=== PATIENT | female | born 1965 | race African-American/Black ===

== ENCOUNTER 2017-01-30 11:34 | Inpatient (IN) | payer OTHER ==
[~2017-01-30] VITALS: Ht 162.6 cm; Wt 52.2 kg
[~2017-01-30 11:34] MED LIST: KEPPRA500 M4 ORAL; KEPPRA500 MG ORAL; LEVETIRACETAM500 MG ORAL; NKM
[2017-01-30 11:39] VITALS: BP 128/74
[2017-01-30 12:38] LABS: MEAN CORPUSCULAR HEMOGLOBIN 19.3 PG (27.0-31.0); MEAN CORPUSCULAR HGB CONC 28.3 G/DL (32.0-36.0); MEAN CORPUSCULAR VOLUME 68 FL (80-99); MEAN PLATELET VOLUME 6.5 FL (6.5-10.1); PLATELET COUNT 194 K/UL (150-450); RED BLOOD COUNT 3.17 M/UL (4.20-5.40); RED CELL DISTRIBUTION WIDTH 17.9 % (11.6-14.8); WHITE BLOOD COUNT 5.7 K/UL (4.8-10.8)
[2017-01-30 12:51] LABS: TROPONIN I < 0.30 ng/mL (<=0.30)
--- NOTE | 2017-01-30 12:52 | Emergency Room Report ---
History of Present Illness General Chief Complaint: Headache Source: Patient (KHADIJAH SINCLAIR D.O.) Present Illness HPI Patient presents with complaints of headache lightheadedness And severe dizziness Patient reports history of seizures and is on Keppra denies any chest pain or shortness of breath She does feel generally weak Denies any blood in the stool denies any vomiting Denies any fevers or chills denies any trauma Patient symptoms are worsened with standing and ambulation (KHADIJAH SINCLAIR D.O.) Allergies: Coded Allergies: NO KNOWN ALLERGIES (Unverified Allergy, Unknown, 06/14/15) Patient History Past Medical History: see triage record Pertinent Family History: none Reviewed Nursing Documentation: PMH: Agreed, PSxH: Agreed (KHADIJAH SINCLAIR D.O.) Nursing Documentation-PMH Hx Cardiac Problems: No Hx Hypertension: Yes Hx Cancer: No Hx Gastrointestinal Problems: No Hx Neurological Problems: Yes Hx Cerebrovascular Accident: No Hx Transient Ischemic Attacks: No Hx Dementia: No Hx Alzheimer's Disease: No Hx Parkinson's Disease: No Hx Meningitis: No Hx Encephalitis: No Hx Seizures: Yes Hx Epilepsy: No Hx Multiple Sclerosis: No Hx Cerebral Palsy: No Hx Amyotrophic Lat Sclerosis: No Hx Guillian-[place] Syndrome: No Hx Paralysis: No Hx Peripheral Neuropathy: No Hx Spinal Cord Injury: No Hx Head Trauma: No Hx Memory Loss: No Hx Concentration Difficulty: No Hx Speech Problem: No Hx Tremors: No Hx Vertigo: No Hx Dizziness: Yes Hx Syncope: No Hx Headaches: Yes Hx Aphasia: No Hx Dysphasia: No Hx Numbness: No Hx Weakness: No Hx Fatigue: No Hx Neurologic Surgery: No Hx Brain Shunt: No (KHADIJAH SINCLAIR D.O.) Review of Systems All Other Systems: negative except mentioned in HPI (KHADIJAH SINCLAIR D.O.) Physical Exam Vital Signs Date Time Temp Pulse Resp B/P Pulse Ox O2 Delivery O2 Flow Rate FiO2 01/30/17 11:19 98.4 72 18 125/78 100 01/30/17 11:39 Room Air Sp02 EP Interpretation: reviewed, normal General Appearance: no apparent distress - However appears frail Head: normocephalic, atraumatic Eyes: bilateral eye EOMI, bilateral eye PERRL, bilateral eye other - Pale conjunctiva ENT: hearing grossly normal, normal pharynx, TMs + canals normal, uvula midline Neck: full range of motion, supple, no meningismus, no bony tend Respiratory: lungs clear, normal breath sounds, no rhonchi, no respiratory distress, no retraction, no accessory muscle use Cardiovascular #1: normal peripheral pulses, regular rate, rhythm, no edema, no gallop, no JVD, no murmur Gastrointestinal: normal bowel sounds, non tender, soft, no mass, no organomegaly, non-distended, no guarding, no hernia, no pulsatile mass, no rebound Genitourinary: no CVA tenderness Musculoskeletal: normal inspection Neurologic: oriented x3, responsive, food checkers and cashiers supervisor III-XII nml as tested, motor strength/ tone normal, sensory intact Psychiatric: mood/affect normal Skin: normal color, no rash, warm/dry, palpation normal Lymphatic: normal inspection, no adenopathy (KHADIJAH SINCLAIR D.O.) Medical Decision Making Diagnostic Impression: Primary Impression: Symptomatic anemia ER Course Patient is a fairly complex patient with multiple differential to consideration including but not limited to cardiac cardiopulmonary and vascular emergencies Patient's blood work reveals significant anemia she has had previous blood transfusions at this time blood work was initiated and the patient requiring admission Labs Test 01/30/17 12:22 White Blood Count 5.7 K/UL (4.8-10.8) Red Blood Count 3.17 M/UL (4.20-5.40) Hemoglobin 6.1 G/DL (12.0-16.0) Hematocrit 21.5 % (37.0-47.0) Mean Corpuscular Volume 68 FL (80-99) Mean Corpuscular Hemoglobin 19.3 PG (27.0-31.0) Mean Corpuscular Hemoglobin Concent 28.3 G/DL (32.0-36.0) Red Cell Distribution Width 17.9 % (11.6-14.8) Platelet Count 194 K/UL (150-450) Mean Platelet Volume 6.5 FL (6.5-10.1) Neutrophils (%) (Auto) % (45.0-75.0) Lymphocytes (%) (Auto) % (20.0-45.0) Monocytes (%) (Auto) % (1.0-10.0) Eosinophils (%) (Auto) % (0.0-3.0) Basophils (%) (Auto) % (0.0-2.0) Differential Total Cells Counted 100 Neutrophils % (Manual) 46 % (45-75) Lymphocytes % (Manual) 43 % (20-45) Monocytes % (Manual) 10 % (1-10) Eosinophils % (Manual) 0 % (0-3) Basophils % (Manual) 1 % (0-2) Band Neutrophils 0 % (0-8) Platelet Estimate Adequate Platelet Morphology Normal Hypochromasia 4+ Anisocytosis 2+ Microcytosis 3+ Sodium Level 139 mEQ/L (135-145) Potassium Level 3.6 mEQ/L (3.4-4.9) Chloride Level 99 mEQ/L (98-107) Carbon Dioxide Level 26 mEQ/L (20-30) Anion Gap 14 (5-15) Blood Urea Nitrogen 10 mg/dL (7-23) Creatinine 0.9 mg/dL (0.5-0.9) Estimat Glomerular Filtration Rate > 60 mL/min (>60) Glucose Level 94 mg/dL (74-106) Calcium Level 9.1 mg/dL (8.6-10.2) Total Bilirubin 0.2 mg/dL (0.0-1.2) Aspartate Amino Transf (AST/SGOT) 13 U/L (5-40) Alanine Aminotransferase (ALT/SGPT) 6 U/L (3-33) Alkaline Phosphatase 85 U/L (35-104) Total Creatine Kinase 37 U/L (26-140) Creatine Kinase MB < 1.5 ng/mL (< 3.8) Creatine Kinase MB Relative Index 4.0 Troponin I < 0.30 ng/mL (<=0.30) Total Protein 7.1 g/dL (6.6-8.7) Albumin 3.9 g/dL (3.5-5.2) Globulin 3.2 g/dL Albumin/Globulin Ratio 1.2 (1.0-2.7) Lipase 26 U/L (< 60) (KHADIJAH SINCLAIR D.O.) ER Course Patient was previously endorsed by Dr Sinclair for admission for symptomatic anemia and blood transfusion I was alerted by RN Jose and charge entry clerk that patient refusing to be admitted now because "I dont like the tuna and I want to go home and eat real food." I spent over 20minutes on 3 separate occasions trying to convince patient of importance for her to stay in hospital. Initially she said she would "rip out her IV and leave" and didnt want to even finish the first unit of blood transfusion but after long discussion, agreed to stay in ED for that. Patient refused to sign AMA paperwork but essentially is leaving against medical advice Patient is clinically sober, is free from from distracting injury, and has intact judgement and capacity to decide to leave against medical advice. Patient came in with symptomatic anemia, see Dr Sinclair's note for complete HPI , PE, and assessment/plan. Patient was admitted to Dr Blackburn. Patient was also already seen by GI specialist in ED as well. Patient verbalized understanding of my concern for symptomatic anemia and recommendation by the ER physician and admitting physician for her admission for additional blood transfusion and repeat CBC, and further evaluation and management as an inpatient. I explained to patient the risks of leaving AMA and patient informed that if they she leaves, she could get worse, she could become become critically ill from continued bleeding, possibly become disabled or . Patient verbalized back to me understanding of these risks but still wants to leave. Patient states "God is watching over me". She states she has followup appointment February 03 (in 4 days) and will "get the blood then." Patient tossed the mattress on stretcher before leaving ER. (RYANN GUIDRY M.D.) Rhythm Strip Diag. Results EP Interpretation: yes Rate: 66 Rhythm: NSR, no PVC's, no ectopy (KHADIJAH SINCLAIR D.O.) Last Vital Signs Date Time Temp Pulse Resp B/P Pulse Ox O2 Delivery O2 Flow Rate FiO2 01/30/17 11:39 98.3 76 17 128/74 100 Room Air Status: improved (KHADIJAH SINCLAIR D.O.) Status: improved (RYANN GUIDRY M.D.) Disposition: AGAINST MEDICAL ADVICE Condition: Serious Referrals: NOT CHOSEN IPA/,REFERRING (PCP) KHADIJAH SINCLAIR D.O. January 30, 2017 12:52 RYANN GUIDRY M.D. January 30, 2017 16:33
[2017-01-30 12:56] LABS: ALANINE AMINOTRANSFERASE 6 U/L (3-33); ALBUMIN/GLOBULIN RATIO 1.2 (1.0-2.7); ANION GAP 14 (5-15); ASPARTATE AMINO TRANSFERASE 13 U/L (5-40); CALCIUM 9.1 mg/dL (8.6-10.2); CARBON DIOXIDE 26 mEQ/L (20-30); CHLORIDE 99 mEQ/L (98-107); CREATININE 0.9 mg/dL (0.5-0.9); GLOMERULAR FILTRATION RATE > 60 mL/min (>60); HEMOLYSIS 0; LIPASE 26 U/L (< 60); POTASSIUM 3.6 mEQ/L (3.4-4.9); SODIUM 139 mEQ/L (135-145); TOTAL PROTEIN 7.1 g/dL (6.6-8.7)
[2017-01-30 13:06] LABS: CKMB < 1.5 ng/mL (< 3.8)
[2017-01-30 13:19] VITALS: BP 107/71
[2017-01-30 13:36] LABS: ANISOCYTOSIS 2+; BAND NEUTROPHILS % (MANUAL) 0 % (0-8); BASOPHILS % (MANUAL) 1 % (0-2); EOSINOPHILS % (MANUAL) 0 % (0-3); HYPOCHROMASIA 4+; LYMPHOCYTES % (MANUAL) 43 % (20-45); MICROCYTES 3+; NEUTROPHILS % (MANUAL) 46 % (45-75); PLATELET ESTIMATE ADEQUATE; PLATELET MORPHOLOGY NORMAL; TOTAL CELLS COUNTED 100
[2017-01-30] MEDS ORDERED: Morphine Sulfate 2mg/ml Inj IVP PRN (15:00)
[2017-01-30] MEDS ORDERED: Zolpidem 5mg tab ORAL PRN (15:00)
--- NOTE | 2017-01-30 15:12 | History and Physical ---
History of Present Illness General Reason for Hospitalization: Headache, weakness. Present Illness HPI The patient is a 51 yr old female with a PMHx significant for seizure disorder and anemia, who presented to the ED with complaints of headache, lightheadedness , severe dizziness and generalized weakness. Denies any chest pain or shortness of breath, denies N/V, blood in stool or vaginal bleeding. No fever or chills. Denies LOC. Patient symptoms are worsened with standing and ambulation. Allergies: Coded Allergies: NO KNOWN ALLERGIES (Unverified Allergy, Unknown, 06/14/15) Medication History Scheduled Levetiracetam (Keppra), 500 MG ORAL EVERY 12 HOURS Levetiracetam (Keppra), Unknown Dose ORAL EVERY 12 HOURS, (Reported) Levetiracetam (Keppra), 500 MG ORAL EVERY 12 HOURS, (Reported) Levetiracetam* (Levetiracetam*), 500 MG ORAL TWICE A DAY No Known Medications* (NKM - No Known Medications*), 0 ., (Reported) Patient History History Provided By: Patient Healthcare decision maker Resuscitation status Advanced Directive on File Past Medical/Surgical History Past Medical/Surgical History: (1) Seizure disorder (2) Anemia (3) Depression Social History Social History: (1) Non-smoker (2) No illicit drug use (3) No history of alcohol use Review of Systems All Other Systems: negative except mentioned in HPI Physical Exam General Appearance: no apparent distress, alert Lines, tubes and drains: peripheral HEENT: normocephalic, atraumatic Neck: non-tender, normal alignment, supple, normal inspection Respiratory/Chest: lungs clear, normal breath sounds, no respiratory distress Breasts: no masses Cardiovascular/Chest: normal peripheral pulses, normal rate, regular rhythm Abdomen: non tender, soft, no organomegaly Extremities: non-tender, normal inspection, no calf tenderness Skin Exam: warm/dry Neurologic: alert, oriented x 3, responsive, normal mood/affect Last 24 Hour Vital Signs Date Time Temp Pulse Resp B/P Pulse Ox O2 Delivery O2 Flow Rate FiO2 01/30/17 13:19 98.2 73 16 107/71 100 Room Air 01/30/17 11:39 98.3 76 17 128/74 100 Room Air 01/30/17 11:19 98.4 72 18 125/78 100 Laboratory Tests Test 01/30/17 12:22 White Blood Count 5.7 K/UL (4.8-10.8) Red Blood Count 3.17 M/UL (4.20-5.40) L Hemoglobin 6.1 G/DL (12.0-16.0) *L Hematocrit 21.5 % (37.0-47.0) L Mean Corpuscular Volume 68 FL (80-99) L Mean Corpuscular Hemoglobin 19.3 PG (27.0-31.0) L Mean Corpuscular Hemoglobin Concent 28.3 G/DL (32.0-36.0) L Red Cell Distribution Width 17.9 % (11.6-14.8) H Platelet Count 194 K/UL (150-450) Mean Platelet Volume 6.5 FL (6.5-10.1) Neutrophils (%) (Auto) % (45.0-75.0) Lymphocytes (%) (Auto) % (20.0-45.0) Monocytes (%) (Auto) % (1.0-10.0) Eosinophils (%) (Auto) % (0.0-3.0) Basophils (%) (Auto) % (0.0-2.0) Differential Total Cells Counted 100 Neutrophils % (Manual) 46 % (45-75) Lymphocytes % (Manual) 43 % (20-45) Monocytes % (Manual) 10 % (1-10) Eosinophils % (Manual) 0 % (0-3) Basophils % (Manual) 1 % (0-2) Band Neutrophils 0 % (0-8) Platelet Estimate Adequate Platelet Morphology Normal Hypochromasia 4+ Anisocytosis 2+ Microcytosis 3+ Sodium Level 139 mEQ/L (135-145) Potassium Level 3.6 mEQ/L (3.4-4.9) Chloride Level 99 mEQ/L (98-107) Carbon Dioxide Level 26 mEQ/L (20-30) Anion Gap 14 (5-15) Blood Urea Nitrogen 10 mg/dL (7-23) Creatinine 0.9 mg/dL (0.5-0.9) Estimat Glomerular Filtration Rate > 60 mL/min (>60) Glucose Level 94 mg/dL (74-106) Calcium Level 9.1 mg/dL (8.6-10.2) Total Bilirubin 0.2 mg/dL (0.0-1.2) Aspartate Amino Transf (AST/SGOT) 13 U/L (5-40) Alanine Aminotransferase (ALT/SGPT) 6 U/L (3-33) Alkaline Phosphatase 85 U/L (35-104) Total Creatine Kinase 37 U/L (26-140) Creatine Kinase MB < 1.5 ng/mL (< 3.8) Creatine Kinase MB Relative Index 4.0 Troponin I < 0.30 ng/mL (<=0.30) Total Protein 7.1 g/dL (6.6-8.7) Albumin 3.9 g/dL (3.5-5.2) Globulin 3.2 g/dL Albumin/Globulin Ratio 1.2 (1.0-2.7) Lipase 26 U/L (< 60) Height (Feet): 5 Height (Inches): 4.00 Weight (Pounds): 115 Assessment/Plan Problem List: (1) Seizure disorder ICD Codes: G40.909 - Epilepsy, unspecified, not intractable, without status epilepticus SNOMED: 709551570 (2) Symptomatic anemia ICD Codes: D64.9 - Anemia, unspecified SNOMED: 420167994 Assessment/Plan Transfuse 2 units PRBC, obtain post transfusion H&H Obtain GI consult Continue esther Shay labs STEPHANIE MEDRANO January 30, 2017 15:12
[2017-01-30] MEDS ORDERED: D5 1/2NS 1,000 ML IV SCH (15:30)
[2017-01-30 15:53] LABS: HEMOLYSIS 1; IRON 15 ug/dL (37-145); TOTAL IRON BINDING CAPACITY 420 ug/dL (250-400)
[2017-01-30 16:41] VITALS: BP 138/77
[2017-01-30 16:42] VITALS: BP 138/77
[2017-01-30] MEDS ORDERED: Docusate 100mg cap ORAL SCH (21:00)
[2017-01-30] MEDS ORDERED: Heparin 5000 units/ml inj SUBQ SCH (21:00)
--- NOTE | 2017-01-31 06:01 | Consultation ---
DATE OF CONSULTATION: 01/30/2017 NOTE: POOR AUDIO QUALITY GASTROLOGY CONSULTATION: CHIEF COMPLAINT: I was asked to see this patient for gastrointestinal bleeding. HISTORY OF PRESENT ILLNESS: The patient is a 51-year-old, woman in the emergency room earlier today. At the time of my dictation, however, it appears that the patient left the emergency room against medical advice and therefore, the said dictation has been done to document the visit, but no further care afterwards will be given. The patient came to the hospital due to reported seizures, although she was somewhat unclear. . She had some dizziness and lightheadedness as well. The patient denies any vomiting or hematochezia. She has months. She has never had endoscopy or colonoscopy. She does have some degree of chronic constipation, but . The patient has severe long-term basis. Evaluation in the emergency room shows severe anemia and admitted the patient to hospital emergency room earlier today. PAST MEDICAL HISTORY: disorder, anemia, depression. MEDICATIONS: See chart list for details. SOCIAL HISTORY: The patient does not smoke or drink alcohol or use drugs. FAMILY HISTORY: Noncontributory. REVIEW OF SYSTEMS: Negative. PHYSICAL EXAMINATION: GENERAL: This is a the pleasant woman, seen in the emergency room. HEENT: Normocephalic and atraumatic. Sclerae anicteric. Oropharynx clear. NECK: Supple. CHEST: Clear to auscultation. CARDIOVASCULAR: Regular rate. ABDOMEN: Soft. Good bowel sounds. There is no tenderness. EXTREMITIES: Revealed no edema. RECTAL: The patient refused rectal exam. NEUROLOGIC: Nonfocal. LABORATORY DATA: Noted. ASSESSMENT: This patient anemia. Therefore, she will be admitted to the hospital for blood transfusion and endoscopy and colonoscopy. her symptoms of upper gastrointestinal source of blood loss. The patient has a large hiatal hernia with ulcers. At the time of this dictation, however, it appears that the patient has left against the medical advice. The patient should follow up with her primary physician as an outpatient for further evaluation and care. Carlos Dyson M.D. DR: Annel JOB#: [id number] CC:
--- NOTE | 2017-02-02 07:57 | Cardiology Report ---
APPROVED REPORT EKG Measurement Heart [id number] Normal sinus rhythm Normal ECG
--- NOTE | 2017-02-02 08:35 | Discharge Summary ---
Discharge Summary Hospital Course Date of Admission January 30, 2017 at 13:37 Date of Discharge January 30, 2017 at 18:01 Admitting Diagnosis Symptomatic Anemia YAYA Avelar is a 51 year old female who was admitted on January 30, 2017 at 13:37 for Symptomatic Anemia Hospital Course dc summary #[id number] Discharge Discharge Disposition Patient signed AMA Discharge Diagnoses: Discharge Instructions Discharge Instructions Special Instructions I have been assigned to complete a D/C Summary on this account. I was not involved in the patient management Maura Aguayo NP (Vanchtein) February 02, 2017 08:35
--- NOTE | 2017-02-02 22:45 | Discharge Summary 2 SIG ---
DATE OF ADMISSION: 01/30/2017 DATE OF DISCHARGE: 01/30/2017 Date of signing against medical advice 01/30/2017 REASON FOR ADMISSION: The patient is a 51-year-old female presented to emergency room with complaint of headache, lightheadedness, generalized weakness, and dizziness. The patient reported history of seizure, taking Keppra. No recent seizure activity. The patient denied any chest pain, shortness of breath, or palpitation. The patient denied any blood in the stool. She denied vomiting. The patient denied fever or chills. The patient denied any trauma. The patient reported that symptoms are worsened with standing and ambulation. Workup in the emergency room revealed hemoglobin of 6.1, hematocrit 21.5. Laboratory work otherwise was unremarkable. The patient admitted for anemia workup, transfusion, and further gastrointestinal workup. ADMITTING DIAGNOSIS: 1. Symptomatic anemia. 2. Possible upper gastrointestinal bleeding. 3. Seizure disorder. HOSPITAL COURSE: The patient was started on transfusion of one unit PRBC in the emergency room, two units in total were ordered. Seizure precautions were maintained. The patient started on Keppra, supplemental oxygen, pulmonary toilet provided as needed. Pulse oximetry was stable on the room air. GI seen and evaluated the patient and recommended esophagogastroduodenoscopy and colonoscopy as well as lab for anemia workup. The patient decided to sign against medical advice since she did not like the food in the hospital. She refused to sign against medical advice form. Emergency room doctor was notified by nurses that the patient decided to leave against medical advice. The patient finished first units of packed red blood cells, declined a second unit of blood transfusion. She had a appointment on 02/03/2017 with the primary medical doctor which she will follow. Prior to leaving, all the risks and consequences for leaving against medical advice were explained to the patient. Nevertheless the patient verbalized understanding of this risk and still expressed desire to leave. The patient was in no distress. Vital signs were stable. The patient left against medical advice without signing against medical advice form. FINAL DIAGNOSES: Include: 1. Symptomatic anemia status post one unit PRBC transfusion. 2. Seizure disorder. 3. Likely upper gastrointestinal bleeding. Braydon Lozoya M.D. I have been assigned to dictate discharge summary on this account and I was not involved in the patient's management. Maura anglindedrick NJacquelinePJacqueline DR: Melvin JOB#: [id number] CC:
== END 2017-01-30 18:01 | disposition left against medical advice (07) | DRG 663 ==
LOC: EDBD 11:34 → EMR 12:03 → 4E 13:37 → EDBEDREQ 14:18
PROC: 30233N1 Transfusion of Nonautologous Red Blood Cells into Peripheral Vein, Percutaneous Approach (ICD-10-PCS; principal; 2017-01-30)
DX: D64.9 Anemia, unspecified (principal); G40.909 Epilepsy, unspecified, not intractable, without status epilepticus; K44.9 Diaphragmatic hernia without obstruction or gangrene
CPT/HCPCS: 36415; 80053; 82550; 82553; 83540; 83550; 83690; 84484; 85007; 85025; 86850; 86900; 86901; 86920; 93005; 96360

== ENCOUNTER 2018-06-29 15:43 | Emergency (ER) | payer OTHER ==
[~2018-06-29] VITALS: Ht 154.9 cm; Wt 45.4 kg
[2018-06-29 15:54] VITALS: BP 141/98
[2018-06-29 16:45] LABS: BASOPHILS % (AUTO) 1.3 % (0.0-2.0); EOSINOPHILS % (AUTO) 0.1 % (0.0-3.0); HEMATOCRIT 34.8 % (37.0-47.0); HEMOGLOBIN 11.2 G/DL (12.0-16.0); LYMPHOCYTES % (AUTO) 34.1 % (20.0-45.0); MEAN CORPUSCULAR VOLUME 84 FL (80-99); MONOCYTES % (AUTO) 7.1 % (1.0-10.0); NEUTROPHILS % (AUTO) 57.3 % (45.0-75.0); PLATELET COUNT 309 K/UL (150-450); RED BLOOD COUNT 4.14 M/UL (4.20-5.40); RED CELL DISTRIBUTION WIDTH 16.5 % (11.6-14.8)
[2018-06-29 17:00] LABS: ANION GAP 9 mmol/L (5-15); BLOOD UREA NITROGEN 11 mg/dL (7-18); CALCIUM 9.3 MG/DL (8.5-10.1); CARBON DIOXIDE 29 MMOL/L (21-32); CHLORIDE 102 MMOL/L (98-107); POTASSIUM 3.4 MMOL/L (3.5-5.1); SODIUM 140 MMOL/L (136-145)
[2018-06-29 17:12] LABS: ALANINE AMINOTRANSFERASE 11 U/L (12-78); ALBUMIN 3.7 G/DL (3.4-5.0); ALBUMIN/GLOBULIN RATIO 0.9 (1.0-2.7); ALKALINE PHOSPHATASE 121 U/L (46-116); ASPARTATE AMINO TRANSFERASE 18 U/L (15-37); BILIRUBIN,TOTAL 0.5 MG/DL (0.2-1.0)
--- NOTE | 2018-06-29 17:46 | Emergency Room Report ---
History of Present Illness General Chief Complaint: Dizziness Source: EMS Present Illness HPI This patient has multiple vague, mild complaints. Most prominent seems to be mild lightheadedness today and mild frontal headache. No trauma, no fever, no shortness of breath, no travel history, no leg swelling, no chest pain, no diaphoresis, no exertional complaints, no nausea, no vomiting, no diarrhea, no abdominal pain. Tolerating po fine, normal urinary output, normal bm. No syncope , LOC, dizziness. Allergies: Coded Allergies: NO KNOWN ALLERGIES (Unverified Allergy, Unknown, 06/14/15) Nursing Documentation-[facility] Past Medical History: No History, Except For Hx Cardiac Problems: No Hx Hypertension: Yes Hx Cancer: No Hx Gastrointestinal Problems: No Hx Neurological Problems: Yes Hx Cerebrovascular Accident: No Hx Transient Ischemic Attacks: No Hx Dementia: No Hx Alzheimer's Disease: No Hx Parkinson's Disease: No Hx Meningitis: No Hx Encephalitis: No Hx Seizures: Yes Hx Epilepsy: No Hx Multiple Sclerosis: No Hx Cerebral Palsy: No Hx Amyotrophic Lat Sclerosis: No Hx Guillian-[place] Syndrome: No Hx Paralysis: No Hx Peripheral Neuropathy: No Hx Spinal Cord Injury: No Hx Head Trauma: No Hx Memory Loss: No Hx Concentration Difficulty: No Hx Speech Problem: No Hx Tremors: No Hx Vertigo: No Hx Dizziness: Yes Hx Syncope: No Hx Headaches: Yes Hx Aphasia: No Hx Dysphasia: No Hx Numbness: No Hx Weakness: No Hx Fatigue: No Hx Neurologic Surgery: No Hx Brain Shunt: No Review of Systems Constitutional: Reports: no symptoms, see HPI, malaise Eye: Reports: no symptoms ENT: Reports: no symptoms Respiratory: Reports: no symptoms Cardiovascular: Reports: no symptoms Gastrointestinal: Reports: no symptoms Genitourinary: Reports: no symptoms Musculoskeletal: Reports: no symptoms Skin: Reports: no symptoms Psychiatric: Reports: no symptoms Neurological: Reports: see HPI, headache Endocrine: Reports: no symptoms Hematologic/Lymphatic: Reports: no symptoms Allergic: Reports: no symptoms All Other Systems: negative except mentioned in HPI Physical Exam Vital Signs Date Time Temp Pulse Resp B/P (MAP) Pulse Ox O2 Delivery O2 Flow Rate FiO2 06/29/18 15:39 95 20 140/107 100 Room Air 06/29/18 15:54 98.6 Sp02 EP Interpretation: reviewed, normal General Appearance: normal inspection, well appearing, no apparent distress, alert, GCS 15, non-toxic Head: normocephalic, atraumatic Eyes: bilateral eye normal inspection, bilateral eye PERRL, bilateral eye EOMI ENT: normal ENT inspection, hearing grossly normal, normal pharynx, no angioedema, normal voice, moist mucus membranes Neck: normal inspection, full range of motion, supple, no meningismus, no bony tend Respiratory: normal inspection, lungs clear, normal breath sounds, no rhonchi, no respiratory distress, no retraction, no accessory muscle use, no wheezing Cardiovascular #1: normal inspection, regular rate, rhythm, no edema Gastrointestinal: normal inspection, normal bowel sounds, non tender, soft, no mass, non-distended Musculoskeletal: gait/station normal, normal range of motion Neurologic: normal inspection, alert, oriented x3, responsive, motor strength/ tone normal Psychiatric: normal inspection, judgement/insight normal, memory normal Suicide Risk Assessment: Suicidal Ideation: No Had intent to initiate attempt: No Pt's plan for suicide attempt: No Has means to complete attempt: No Skin: normal inspection, normal color, no rash, warm/dry Medical Decision Making Diagnostic Impression: Primary Impression: Episode of generalized weakness ER Course There is nothing abnormal on exam, EKG, labs. Ambulatory without difficulty. No further intervention indicated. OK for d/c. EKG Diagnostic Results EKG Time: 14:25 Rate: normal Rhythm: NSR ST Segments: no acute changes ASA given to the pt in ED: No Rhythm Strip Diag. Results Rhythm Strip Time: 18:16 EP Interpretation: yes Rate: 71 Rhythm: NSR Chest X-Ray Diagnostic Results Chest X-Ray Diagnostic Results : Chest X-Ray Ordered: Yes # of Views/Limited/Complete: 1 View Indication: Chest Pain EP Interpretation: Yes Interpretation: no consolidation, no effusion, no pneumothorax, no acute cardiopulmonary disease Impression: No acute disease Last Vital Signs Date Time Temp Pulse Resp B/P (MAP) Pulse Ox O2 Delivery O2 Flow Rate FiO2 06/29/18 15:54 98.6 84 20 141/98 100 Room Air Status: improved Disposition: HOME, SELF-CARE Referrals: DONALDO GARCIA,REFERRING (PCP) Patient Instructions: Flaco Tenorio M.D. Jun 29, 2018 17:46
[2018-06-29 18:14] VITALS: BP 132/79
[2018-06-29 18:15] VITALS: BP 132/79
--- NOTE | 2018-06-30 11:29 | Diagnostic Imaging Report ---
Indication: Chest pain Comparison: 04/28/2016 A single view chest radiograph was obtained. Findings: The heart is enlarged. The lungs are clear. Pulmonary vascularity is appropriate. The diaphragmatic contour is smooth and costophrenic angles are sharp. No pleural effusions are identified. The bones are unremarkable. Impression: No acute findings
--- NOTE | 2018-07-01 16:15 | Cardiology Report ---
APPROVED REPORT EKG Measurement Heart [id number] Normal sinus rhythm Normal ECG
== END 2018-06-29 18:15 | disposition home or self-care (01) ==
LOC: EDBD 15:43 → EMR 16:35
DX: R53.1 Weakness (principal); R42 Dizziness and giddiness; R51 Headache; I10 Essential (primary) hypertension
CPT/HCPCS: 36415; 71045; 80053; 83880; 84484; 85025; 93005; 96360; 99284

== ENCOUNTER 2019-07-19 09:23 | Emergency (ER) | payer OTHER ==
[~2019-07-19] VITALS: Ht 162.6 cm; Wt 54.4 kg
[2019-07-19 09:32] VITALS: BP 160/110
--- NOTE | 2019-07-19 09:33 | NUR ---
ED Nurse Note: pr came in via RA from home c/o gl fall while getting out of bed does not recall how or what happened. pt is in a c-collar and dressing to head per ems. Pt c/o rt forehead laceration neck pain left rib pain rt hip bruising. awaiting ermd eval and nsg orders.
--- NOTE | 2019-07-19 09:56 | Emergency Room Report ---
History of Present Illness General Chief Complaint: Syncope Source: EMS Present Illness HPI Disclaimer: Please note that this report is being documented using DRAGON technology. This can lead to erroneous entry secondary to incorrect interpretation by the dictating instrument. HPI: Female presents for evaluation of head laceration and a syncopal episode. She has a history of seizure and takes Keppra otherwise no reported medical history. She awoke in her usual state of health and took her 500 mg of Keppra this morning as she usually does. She then has no recollection of the following events but then woke up on the ground with a laceration over the right forehead that was bleeding. She applied pressure and achieved hemostasis. EMS was called. She was complaining of right-sided pain over the hip, ribs, shoulder as well as a generalized headache and neck pain. Placed in a cervical collar by EMS prior to arrival. Denies numbness or tingling. Denies weakness, recent illness, chest pain, shortness of breath, vomiting, diarrhea. Cannot recall any preceding symptoms prior to syncopal episode. Unsure whether or not she had a seizure but denies any tongue biting or urinary incontinence. Last seizure was over a year ago. Has been compliant with Keppra. Denies drug or alcohol use. PMH: Seizure disorder PSH: Reviewed in chart Allergies: None reported Social Hx: Denies Allergies: Coded Allergies: NO KNOWN ALLERGIES (Unverified Allergy, Unknown, 06/14/15) Patient History Now: No Nursing Documentation-PMH Hx Cardiac Problems: No Hx Hypertension: Yes Hx Cancer: No Hx Gastrointestinal Problems: No Hx Neurological Problems: Yes Hx Cerebrovascular Accident: No Hx Transient Ischemic Attacks: No Hx Dementia: No Hx Alzheimer's Disease: No Hx Parkinson's Disease: No Hx Meningitis: No Hx Encephalitis: No Hx Seizures: Yes Hx Epilepsy: No Hx Multiple Sclerosis: No Hx Cerebral Palsy: No Hx Amyotrophic Lat Sclerosis: No Hx Guillian-[place] Syndrome: No Hx Paralysis: No Hx Peripheral Neuropathy: No Hx Spinal Cord Injury: No Hx Head Trauma: No Hx Memory Loss: No Hx Concentration Difficulty: No Hx Speech Problem: No Hx Tremors: No Hx Vertigo: No Hx Dizziness: Yes Hx Syncope: No Hx Headaches: Yes Hx Aphasia: No Hx Dysphasia: No Hx Numbness: No Hx Weakness: No Hx Fatigue: No Hx Neurologic Surgery: No Hx Brain Shunt: No Review of Systems All Other Systems: negative except mentioned in HPI Physical Exam Vital Signs Date Time Temp Pulse Resp B/P (MAP) Pulse Ox O2 Delivery O2 Flow Rate FiO2 07/19/19 09:19 98.1 88 19 160/110 (127) 100 Room Air General: Awake and alert, no acute distress HEENT: NC/AT. Laceration approximately 2 cm across the right forehead. Hemostatic. EOMI. PERRLA. Visual klein are full. No nystagmus. Facial expressions are symmetrical. No facial droop. Cardiovascular: RRR. S1 and S2 normal. No murmur appreciated Resp: Normal work of breathing. No cough, wheezing or crackles appreciated Abdomen: Abdomen is soft, nondistended. Nontender Skin: 2 cm laceration over the right forehead extending into the subcutaneous tissue. Hemostatic. No purulence or significant debris noted MSK: Normal tone and bulk. Moving all extremities. No obvious deformity. There is no drift in the upper or lower extremities bilaterally. Neuro: Awake and alert. Mentating appropriately. Facial expression symmetrical. No dysarthria, no ataxia on [id number] or [id number] testing. Sensation to light touch is intact over the upper and lower extremities. The patient has intact speech with good repetition, comprehension. No aphasia, no neglect. Procedures Laceration/Wound Repair Laceration/Wound Repair : Consent: Verbal Wound Location: face - forehead Wound's Depth, Shape: superficial, linear Wound Explored: clean Anesthesia: 1% Lidocaine Volume Anesthetic (ccs): 5 Wound Debrided: None Wound Repaired With: sutures Suture Size/Type: 4:0 Number of Sutures: 6 Layer Closure?: No Sterile Dressing Applied?: Yes Patient Tolerated: Well Complications: None Medical Decision Making Diagnostic Impression: Primary Impression: Syncopal seizure ER Course 53-year-old female presents for evaluation of syncopal episode and possible seizure with a forehead laceration and extremity pain. Differential includes was not limited to seizure, syncopal episode, dehydration, ACS, lecture light abnormality, medication noncompliance, intoxication. We will start broad metabolic and infectious work-up. She will require head and cervical spine CTs it was as well as x-rays of the right hip and pelvis, right shoulder and of the chest. Will update tetanus and give Keppra. Laboratory Tests Test 07/19/19 10:05 07/19/19 11:07 07/19/19 11:45 White Blood Count 6.4 K/UL (4.8-10.8) Red Blood Count 4.42 M/UL (4.20-5.40) Hemoglobin 13.9 G/DL (12.0-16.0) Hematocrit 42.0 % (37.0-47.0) Mean Corpuscular Volume 95 FL (80-99) Mean Corpuscular Hemoglobin 31.4 PG (27.0-31.0) H Mean Corpuscular Hemoglobin Concent 33.0 G/DL (32.0-36.0) Red Cell Distribution Width 13.3 % (11.6-14.8) Platelet Count 243 K/UL (150-450) Mean Platelet Volume 5.8 FL (6.5-10.1) L Neutrophils (%) (Auto) 66.6 % (45.0-75.0) Lymphocytes (%) (Auto) 26.2 % (20.0-45.0) Monocytes (%) (Auto) 5.6 % (1.0-10.0) Eosinophils (%) (Auto) 0.3 % (0.0-3.0) Basophils (%) (Auto) 1.3 % (0.0-2.0) Sodium Level 137 MMOL/L (136-145) Potassium Level 3.4 MMOL/L (3.5-5.1) L Chloride Level 103 MMOL/L (98-107) Carbon Dioxide Level 30 MMOL/L (21-32) Anion Gap 4 mmol/L (5-15) L Blood Urea Nitrogen 12 mg/dL (7-18) Creatinine 0.7 MG/DL (0.55-1.30) Estimate Glomerular Filtration Rate > 60 mL/min (>60) Glucose Level 92 MG/DL (74-106) Calcium Level 8.9 MG/DL (8.5-10.1) Total Bilirubin 0.3 MG/DL (0.2-1.0) Aspartate Amino Transferase (AST) 19 U/L (15-37) Alanine Aminotransferase (ALT) 15 U/L (12-78) Alkaline Phosphatase 111 U/L (46-116) Total Creatine Kinase 55 U/L (26-308) Total Protein 7.5 G/DL (6.4-8.2) Albumin 3.5 G/DL (3.4-5.0) Globulin 4.0 g/dL Albumin/Globulin Ratio 0.9 (1.0-2.7) L Salicylates Level 5.0 ug/mL (2.8-20) Acetaminophen Level < 2 MCG/ML (10-30) L Serum Alcohol < 3 mg/dL Urine Color Pale yellow Urine Appearance Clear Urine pH 6 (4.5-8.0) Urine Specific [place] 1.015 (1.005-1.035) Urine Protein 1+ (NEGATIVE) H Urine Glucose (UA) Negative (NEGATIVE) Urine Ketones Negative (NEGATIVE) Urine Blood 2+ (NEGATIVE) H Urine Nitrite Negative (NEGATIVE) Urine Bilirubin Negative (NEGATIVE) Urine Urobilinogen Normal MG/DL (0.0-1.0) Urine Leukocyte Esterase Negative (NEGATIVE) Urine RBC 5-10 /HPF (0 - 2) H Urine WBC 0-2 /HPF (0 - 2) Urine Squamous Epithelial Cells Many /LPF (NONE/OCC) H Urine Bacteria Few /HPF (NONE) Urine Opiates Screen Negative (NEGATIVE) Urine Barbiturates Screen Negative (NEGATIVE) Phencyclidine (PCP) Screen Negative (NEGATIVE) Urine Amphetamines Screen Negative (NEGATIVE) Urine Benzodiazepines Screen Negative (NEGATIVE) Urine Cocaine Screen Negative (NEGATIVE) Urine Marijuana (THC) Screen Positive (NEGATIVE) H EKG Diagnostic Results EKG Time: 10:06 Rate: normal Rhythm: NSR ST Segments: no acute changes Other Impression Sinus rhythm, normal axis, normal intervals, no ST segment changes. Rhythm Strip Diag. Results Rhythm Strip Time: 10:06 EP Interpretation: yes Rate: 70s Rhythm: NSR, no PVC's, no ectopy Chest X-Ray Diagnostic Results Chest X-Ray Diagnostic Results : Chest X-Ray Ordered: Yes # of Views/Limited/Complete: 1 View Indication: Chest Pain Interpretation: no consolidation, no effusion, no pneumothorax, no acute cardiopulmonary disease Impression: No acute disease Electronically Signed by: Electronically signed by Dr. Reji Hoang Other X-Ray Diagnostic Results Other X-Ray Diagnostic Results #1: X-Ray ordered: Right shoulder # of Views/Limited Vs Complete: Complete Indication: Pain EP Interpretation: Yes Interpretation: no dislocation, no soft tissue swelling Impression: No acute disease Electronically Signed by: Electronically signed by Dr. Reji Hoang Other X-Ray Diagnostic Results #2: X-Ray ordered: Right hip # of Views/Limited Vs Complete: Complete Indication: Pain EP Interpretation: Yes Interpretation: no dislocation, no soft tissue swelling Impression: No acute disease Electronically Signed by: Electronically signed by Dr. Reji Hoang Reevaluation Time: 13:21 Last Vital Signs Date Time Temp Pulse Resp B/P (MAP) Pulse Ox O2 Delivery O2 Flow Rate FiO2 07/19/19 09:32 98.1 19 160/110 100 Room Air 07/19/19 09:[address] scans of the head and the cervical spine do not show any acute injury. Her neck pain is improved and cervical collar was removed at bedside. X-rays of the shoulder and hip as well as the chest do not show any evidence of acute fracture. Labs are unremarkable. The patient is awake and alert as she has been the entire time. Believe she likely suffered a seizure today as she took her medications later this morning. She states this is consistent with her prior seizures and will follow up with her doctor for reevaluation as an outpatient to discuss current seizure medication regimen. She does not drive. Patient had repair of the forehead laceration with 6 simple interrupted sutures. She will follow-up for removal in 5 to 7 days. We discussed reasons to return to the emergency department. She understands and agrees with this treatment plan. Disposition: HOME, SELF-CARE Condition: Improved Reji Hoang MD Jul 19, 2019 09:56
[2019-07-19] MEDS ORDERED: levETIRAcetam 1,000mg/NS100ml 100 ML IVPB ONE (10:00)
[2019-07-19] MEDS ORDERED: Tetanus/Diptheria/Pertussis IM ONE (10:00)
[2019-07-19 10:32] LABS: BASOPHILS % (AUTO) 1.3 % (0.0-2.0); EOSINOPHILS % (AUTO) 0.3 % (0.0-3.0); HEMOGLOBIN 13.9 G/DL (12.0-16.0); LYMPHOCYTES % (AUTO) 26.2 % (20.0-45.0); MEAN CORPUSCULAR VOLUME 95 FL (80-99); MONOCYTES % (AUTO) 5.6 % (1.0-10.0); NEUTROPHILS % (AUTO) 66.6 % (45.0-75.0); PLATELET COUNT 243 K/UL (150-450); RED BLOOD COUNT 4.42 M/UL (4.20-5.40); RED CELL DISTRIBUTION WIDTH 13.3 % (11.6-14.8); WHITE BLOOD COUNT 6.4 K/UL (4.8-10.8)
[2019-07-19 11:30] LABS: ANION GAP 4 mmol/L (5-15); BLOOD UREA NITROGEN 12 mg/dL (7-18); CALCIUM 8.9 MG/DL (8.5-10.1); CARBON DIOXIDE 30 MMOL/L (21-32); CHLORIDE 103 MMOL/L (98-107); CREATININE 0.7 MG/DL (0.55-1.30); POTASSIUM 3.4 MMOL/L (3.5-5.1); SODIUM 137 MMOL/L (136-145)
[2019-07-19 11:36] LABS: ALANINE AMINOTRANSFERASE 15 U/L (12-78); ALBUMIN 3.5 G/DL (3.4-5.0); ALBUMIN/GLOBULIN RATIO 0.9 (1.0-2.7); ALKALINE PHOSPHATASE 111 U/L (46-116); ASPARTATE AMINO TRANSFERASE 19 U/L (15-37); BILIRUBIN,TOTAL 0.3 MG/DL (0.2-1.0); CREATINE KINASE 55 U/L (26-308)
--- NOTE | 2019-07-19 11:55 | Diagnostic Imaging Report ---
Indication: Dyspnea Comparison: 06/29/2018 A single view chest radiograph was obtained. Findings: Cardiomediastinal appearance is within normal limits for age. The lungs are clear. Pulmonary vascularity is appropriate. The diaphragmatic contour is smooth and costophrenic angles are sharp. No pleural effusions are identified. The bones are unremarkable. Impression: No acute findings
--- NOTE | 2019-07-19 11:56 | Diagnostic Imaging Report ---
Indications: Right hip pain Findings: Two views of the right hip were obtained. No acute fracture is demonstrated. Alignment of the hip is within normal limits. Soft tissues are unremarkable. Impression: Negative for acute injury.
--- NOTE | 2019-07-19 11:56 | Diagnostic Imaging Report ---
Indication: Right shoulder pain COMPARISON: None Findings: 3 views of the right shoulder were obtained. No acute fractures, malalignment, erosions or periostitis are identified. Soft tissues are unremarkable. Impression: Negative for acute injury
[2019-07-19 12:05] LABS: APPEARANCE,URINE CLEAR; BILIRUBIN, URINE NEGATIVE (NEGATIVE); COLOR,URINE PALE YELLOW; GLUCOSE, URINE (UA) NEGATIVE (NEGATIVE); KETONES,URINE NEGATIVE (NEGATIVE); LEUKOCYTE ESTERASE ,URINE NEGATIVE (NEGATIVE); NITRITE,URINE NEGATIVE (NEGATIVE); PH,URINE 6 (4.5-8.0); PROTEIN,URINE 1+ (NEGATIVE); UROBILINOGEN,URINE NORMAL MG/DL (0.0-1.0)
--- NOTE | 2019-07-19 12:10 | Diagnostic Imaging Report ---
Indication: Headache Technique: Contiguous 5 mm thick transaxial imaging of the head obtained in a Siemens Sensation [address] scanner. Soft tissue and bone windows generated. Automatic Exposure Control was utilized. Total Dose length Product (DLP): 1583.[address] Dose Index Volume (CTDIvol): 62.7 mGy Comparison: 08/13/2015 Findings: The size and configuration of the cortical sulci, basal cisterns, and ventricles are within normal limits for age. There is no mass effect, midline shift, or edema identified. There is no evidence of acute hemorrhage or abnormal intra-axial or extra-axial fluid collections. The bones and soft tissues are unremarkable. Impression: No mass effect, edema or acute bleed. The CT scanner at [facility] is accredited by the [employer] and the scans are performed using dose optimization techniques as appropriate to a performed exam including Automatic Exposure control.
--- NOTE | 2019-07-19 12:13 | Diagnostic Imaging Report ---
Indication: Cervical trauma/pain. Technique: Continuous helical imaging of the cervical spine was obtained transaxially from the skull base to the upper thoracic spine. 2-D coronal and sagittal reformatted images were obtained. Automatic Exposure Control was utilized. Total Dose length Product (DLP): 131.[address] Dose Index Volume (CTDIvol): 12.5 mGy Comparison: None Findings: There is no acute fracture or malalignment identified. There is no soft tissue swelling identified. Moderate uncovertebral arthritis is demonstrated at multiple levels resulting in multilevel neural foraminal stenosis. The intervertebral discs at C5-6 and C6-7 are moderately narrowed. This is accompanied by vertebral endplate osteophytes. Impression: No acute injury Moderate spondylosis The CT scanner at [facility] is accredited by the [employer] and the scans are performed using dose optimization techniques as appropriate to a performed exam including Automatic Exposure control.
[2019-07-19] MEDS ORDERED: Lidocaine 1% 10mg/ml/Epi 0.005mg/ml 30ml vial INJ ONE (13:00)
[2019-07-19 15:30] VITALS: BP 153/87
--- NOTE | 2019-07-19 15:56 | NUR ---
ED Nurse Note: taxi voucher provided to pt and slippers.SL removed Pt had six sutures placed to rt forehead by claus
--- NOTE | 2019-07-19 15:58 | NUR ---
ED Nurse Note: Pt cleared by health care Provider for discharge. DC instructions/prescription was given and explained to pt and verbalized understanding of teachings. All medical deviecs such as ID band removed. Pt is AAO x4, ambulatory and left with all personal belongings.
== END 2019-07-19 15:58 | disposition home or self-care (01) ==
LOC: EDBD 09:23 → EMR 10:10
DX: G40.909 Epilepsy, unspecified, not intractable, without status epilepticus (principal); R55 Syncope and collapse; W19.XXXA Unspecified fall, initial encounter; Y92.9 Unspecified place or not applicable; M25.551 Pain in right hip; R07.81 Pleurodynia; M25.512 Pain in left shoulder; M25.511 Pain in right shoulder; R51 Headache; M54.2 Cervicalgia; I10 Essential (primary) hypertension; Z23 Encounter for immunization
CPT/HCPCS: 12011; 36415; 70450; 71045; 72125; 73030; 73510; 80053; 80307; 81003; 82550; 85025; 90471; 90715; 93005; 96374; G0480; G0481; J1953; Z7502; 99284

== ENCOUNTER 2020-04-12 12:46 | Emergency (ER) | payer OTHER ==
[~2020-04-12] VITALS: Ht 162.6 cm; Wt 52.2 kg
[2020-04-12 13:11] VITALS: BP 132/82
[2020-04-12 13:45] VITALS: BP_SYST 138; BP_SYST 164; BP_DIAS 107; BP_DIAS 77; BP_DIAS 99
[2020-04-12 14:02] LABS: BASOPHILS % (AUTO) 2.3 % (0.0-2.0); EOSINOPHILS % (AUTO) 0.9 % (0.0-3.0); HEMATOCRIT 42.9 % (37.0-47.0); HEMOGLOBIN 14.1 G/DL (12.0-16.0); LYMPHOCYTES % (AUTO) 49.8 % (20.0-45.0); MEAN CORPUSCULAR VOLUME 101 FL (80-99); MONOCYTES % (AUTO) 6.8 % (1.0-10.0); NEUTROPHILS % (AUTO) 40.1 % (45.0-75.0); PLATELET COUNT 208 K/UL (150-450); RED BLOOD COUNT 4.26 M/UL (4.20-5.40); RED CELL DISTRIBUTION WIDTH 12.3 % (11.6-14.8); WHITE BLOOD COUNT 5.5 K/UL (4.8-10.8)
--- NOTE | 2020-04-12 14:08 | Emergency Room Report ---
History of Present Illness General Chief Complaint: Syncope Source: Patient Present Illness HPI 54 YO Female presents to the ED c/o seizure earlier today. She reports history of seizures with auras. Patient reports that she believes she may have been having an aura however she states she was feeling slightly dizzy so she went to run in the house. Patient reports she tripped as she was coming in the door and then remembers being on the ground. Patient does report 7/10 in severity tenderness to the right side of her head. She denies nausea or vomiting. Patient denies fevers or chills. Patient denies midline neck or back pain. She denies taking blood thinning medications. Patient takes Keppra, and endorses that she has been compliant with her medications. She also reports marijuana use and states that the Keppra makes her feel nauseated and she states that she does better with marijuana. She denies dizziness, visual changes, changes to her hearing. Patient denies loss of vision. She denies paresthesias or muscle weakness. 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 Patient History Past Medical History: seizures Social History: Reports: drug use - thc Now: No Reviewed Nursing Documentation: PMH: Agreed; PSxH: Agreed Nursing Documentation-PMH Past Medical History: No History, Except For Hx Cardiac Problems: No Hx Hypertension: Yes Hx Cancer: No Hx Gastrointestinal Problems: No Hx Neurological Problems: Yes Hx Cerebrovascular Accident: No Hx Transient Ischemic Attacks: No Hx Dementia: No Hx Alzheimer's Disease: No Hx Parkinson's Disease: No Hx Meningitis: No Hx Encephalitis: No Hx Seizures: Yes Hx Epilepsy: No Hx Multiple Sclerosis: No Hx Cerebral Palsy: No Hx Amyotrophic Lat Sclerosis: No Hx Guillian-[place] Syndrome: No Hx Paralysis: No Hx Peripheral Neuropathy: No Hx Spinal Cord Injury: No Hx Head Trauma: No Hx Memory Loss: No Hx Concentration Difficulty: No Hx Speech Problem: No Hx Tremors: No Hx Vertigo: No Hx Dizziness: Yes Hx Syncope: No Hx Headaches: Yes Hx Aphasia: No Hx Dysphasia: No Hx Numbness: No Hx Weakness: No Hx Fatigue: No Hx Neurologic Surgery: No Hx Brain Shunt: No Review of Systems All Other Systems: negative except mentioned in HPI Physical Exam Vital Signs Date Time Temp Pulse Resp B/P (MAP) Pulse Ox O2 Delivery O2 Flow Rate FiO2 04/12/20 12:40 97.9 70 15 164/106 (125) 98 Room Air Sp02 EP Interpretation: reviewed, normal General Appearance: no apparent distress, alert, GCS 15, non-toxic Head: normocephalic, other - TTP right side of the head - parietal region Eyes: bilateral eye normal inspection, bilateral eye PERRL, bilateral eye EOMI ENT: hearing grossly normal, normal voice, other - No erythema or warmth in the left mastiodarea. NO mastoid tenderness. Neck: full range of motion, no bony tend Respiratory: chest non-tender, lungs clear, normal breath sounds, no respiratory distress, no wheezing, speaking full sentences Cardiovascular #1: regular rate, rhythm, no edema, normal capillary refill Gastrointestinal: non tender, soft Genitourinary: normal inspection - no incontinence Musculoskeletal: back normal, normal range of motion, gait/station normal, non- tender Neurologic: alert, motor strength/tone normal, oriented x3, sensory intact, responsive, speech normal, other - no nystagmus, no pronator drift. Psychiatric: judgement/insight normal Skin: no rash, normal color, other - no bruises. No erythema or warmth in the left mastiodarea. NO mastoid tenderness. Medical Decision Making PA Attestation Dr. Morin is my supervising Physician whom patient management has been discussed with. Diagnostic Impression: Primary Impression: Seizure disorder Additional Impressions: LOC (loss of consciousness) Contusion of head Qualified Codes: S00.93XA - Contusion of unspecified part of head, initial encounter ER Course 54 YO Female presents to the ED c/o seizure earlier today. She reports history of seizures with auras. Patient reports that she believes she may have been having an aura however she states she was feeling slightly dizzy so she went to run in the house. Patient reports she tripped as she was coming in the door and then remembers being on the ground. Patient does report 7/10 in severity tenderness to the right side of her head. She denies nausea or vomiting. Patient denies fevers or chills. Patient denies midline neck or back pain. She denies taking blood thinning medications. Patient takes Keppra, and endorses that she has been compliant with her medications. She also reports marijuana use and states that the Keppra makes her feel nauseated and she states that she does better with marijuana. She denies dizziness, visual changes, changes to her hearing. Patient denies loss of vision. She denies paresthesias or muscle weakness. She denies loss of gross motor movements. Ddx considered but are not limited to seizure, meningitis, infection, CVA/TIA, intracranial hemorrhage, intracranial process Vital signs: he is afebrile, vital signs are WNL H&PE are most consistent with status post seizure ORDERS: -BMP -CBC ED INTERVENTIONS: -1 Liter NS - Tylenol PO DISCHARGE: At this time pt. is stable for d/c to home. Will provide printed patient care instructions, and any necessary prescriptions. Care plan and follow up instructions have been discussed with the patient prior to discharge. Labs Test 04/12/20 13:40 White Blood Count 5.5 K/UL (4.8-10.8) Red Blood Count 4.26 M/UL (4.20-5.40) Hemoglobin 14.1 G/DL (12.0-16.0) Hematocrit 42.9 % (37.0-47.0) Mean Corpuscular Volume 101 FL (80-99) Mean Corpuscular Hemoglobin 33.0 PG (27.0-31.0) Mean Corpuscular Hemoglobin Concent 32.8 G/DL (32.0-36.0) Red Cell Distribution Width 12.3 % (11.6-14.8) Platelet Count 208 K/UL (150-450) Mean Platelet Volume 7.1 FL (6.5-10.1) Neutrophils (%) (Auto) 40.1 % (45.0-75.0) Lymphocytes (%) (Auto) 49.8 % (20.0-45.0) Monocytes (%) (Auto) 6.8 % (1.0-10.0) Eosinophils (%) (Auto) 0.9 % (0.0-3.0) Basophils (%) (Auto) 2.3 % (0.0-2.0) Sodium Level 138 MMOL/L (136-145) Potassium Level 4.4 MMOL/L (3.5-5.1) Chloride Level 103 MMOL/L (98-107) Carbon Dioxide Level 28 MMOL/L (21-32) Anion Gap 7 mmol/L (5-15) Blood Urea Nitrogen 10 mg/dL (7-18) Creatinine 0.9 MG/DL (0.55-1.30) Estimat Glomerular Filtration Rate > 60 mL/min (>60) Glucose Level 91 MG/DL (74-106) Calcium Level 9.5 MG/DL (8.5-10.1) EKG Diagnostic Results EP Interpretation: Dr. morin Rate: normal - 72 Rhythm: NSR ST Segments: no acute changes ASA given to the pt in ED: No PA Scribe Text This Interpretation was scribed by NAWAF Hernandez. CT/MRI/US Diagnostic Results CT/MRI/US Diagnostic Results : Imaging Test Ordered: CT Head No Contrast Impression " IMPRESSION: 1. No evidence of acute intracranial hemorrhage, mass effect or cortical edema. MRI may be obtained for more sensitive evaluation as clinically indicated. 2. Large left mastoid effusion, new since most recent examination. Clinical correlation for mastoiditis is recommended. " --Per official radiology report- Please see report for specific details. Last Vital Signs Date Time Temp Pulse Resp B/P (MAP) Pulse Ox O2 Delivery O2 Flow Rate FiO2 04/12/20 13:45 65 138/77 62 164/99 70 164/107 04/12/20 13:11 97.9 15 98 Room Air Status: improved Disposition: HOME, SELF-CARE Condition: Stable Scripts Acetaminophen* (TYLENOL EXTRA STRENGTH*) 500 Mg Tablet 500 MG ORAL Q6H, #30 TAB 0 Refills Prov: Milka Hernandez 04/12/20 Referrals: DONALDO GARCIA,REFERRING (PCP) Amirah Baker [facility] Patient Instructions: Seizure, Adult, Syncope, [id number] Additional Instructions: Take medications as directed. Follow up with a Primary Care Provider in 3-5 days For a referral to have NEUROLOGIST Evaluation, even if your symptoms have resolved. --Please review list of primary care clinics, if you do not already have a primary care provider Return sooner to ED if new symptoms occur, or current symptoms become worse. - Please note that this Emergency Department Report was dictated using RouterSharestudent assistance counselor technology software, occasionally this can lead to erroneous entry secondary to interpretation by the dictation equipment. Milka Hernandez Apr 12, 2020 14:08
[2020-04-12 14:19] LABS: ANION GAP 7 mmol/L (5-15); BLOOD UREA NITROGEN 10 mg/dL (7-18); CALCIUM 9.5 MG/DL (8.5-10.1); CARBON DIOXIDE 28 MMOL/L (21-32); CHLORIDE 103 MMOL/L (98-107); CREATININE 0.9 MG/DL (0.55-1.30); POTASSIUM 4.4 MMOL/L (3.5-5.1); SODIUM 138 MMOL/L (136-145)
--- NOTE | 2020-04-12 14:35 | Diagnostic Imaging Report ---
CT HEAD WITHOUT CONTRAST INDICATION: Reason For Exam: PAIN Technique: Continuous helical CT scanning of the head was performed without intravenous contrast material. Axial and coronal 5 mm sections were generated. Radiation dose was minimized using automated exposure control DOSE: Total Dose Length Product - DLP 53.[address] Dose Index - CTDIvol(s) 9 3.7 mGy. COMPARISON: CT head dated 07/19/2019 FINDINGS: There is no acute intracranial hemorrhage, mass effect or cortical edema. Moderate cortical cerebral volume loss. Patchy periventricular and subcortical white matter hypodensities, likely representing ischemic microvascular disease, unchanged from most recent examination. There is complete opacification of the left mastoid air cells. Visualized paranasal sinuses are clear. No focal lesions of the bony calvarium or soft tissues of the scalp are seen. IMPRESSION: 1. No evidence of acute intracranial hemorrhage, mass effect or cortical edema. MRI may be obtained for more sensitive evaluation as clinically indicated. 2. Large left mastoid effusion, new since most recent examination. Clinical correlation for mastoiditis is recommended. The CT scanner at [facility] is accredited by the [employer] and the scans are performed using protocols designed to limit radiation exposure to as low as reasonably achievable to attain images of sufficient resolution adequate for diagnostic evaluation.
[2020-04-12] MEDS ORDERED: TYLENOL EXTRA500 MG ORAL (14:43)
[2020-04-12] MEDS ORDERED: Acetaminophen 500mg (ES) tab ORAL ONE (14:45)
[2020-04-12 15:50] VITALS: BP 130/78
== END 2020-04-12 16:03 | disposition home or self-care (01) ==
LOC: EDBD 12:46 → EMR 14:07
DX: G40.909 Epilepsy, unspecified, not intractable, without status epilepticus (principal); S00.93XA Contusion of unspecified part of head, initial encounter; F12.90 Cannabis use, unspecified, uncomplicated; W19.XXXA Unspecified fall, initial encounter; Y92.9 Unspecified place or not applicable
CPT/HCPCS: 36415; 70450; 80048; 85025; 93005; Z7502; 99284